=== PATIENT | female | born 1970 | race Asian ===

== ENCOUNTER 2020-07-06 06:02 | Day surgery (SDC) | payer OTHER, SELFPAY ==
[~2020-07-06] VITALS: Ht 160 cm; Wt 66.2 kg
[2020-07-06] MEDS ORDERED: fentaNYL citrate 0.05 MG/ML VIAL ONE (07:22)
[2020-07-06] MEDS ORDERED: MIDAZOLAM 5 MG/5 ML VIAL ONE (07:22)
[2020-07-06] MEDS ORDERED: MIDAZOLAM 2 MG/2 ML VIAL IVP ONE (08:00)
== END 2020-07-06 08:23 | disposition home or self-care (01) ==
LOC: MDS 06:02 → MMU 06:03 → MDS 08:23
PROVIDERS: ATTEND Internal Medicine Gastroenterology
DX: K92.1 Melena (principal); I10 Essential (primary) hypertension; E78.5 Hyperlipidemia, unspecified; Z79.899 Other long term (current) drug therapy; Z88.0 Allergy status to penicillin
CPT/HCPCS: 43235; 81025; 87426; J2250; J3010